=== PATIENT | male | born 1955 | race Caucasian/White ===

== ENCOUNTER 2022-02-01 11:10 | Day surgery (SDC) | payer MEDICARE ==
[2022-02-01] MEDS ORDERED: fentaNYL 100 MCG/2 ML SDV ONE (11:38)
[2022-02-01] MEDS ORDERED: Propofol 200 MG/20 ML SDV ONE (11:39)
[2022-02-01] MEDS ORDERED: Sodium Chloride 0.9% 1,000 ML IV SCH (11:45)
== END 2022-02-01 14:00 ==
LOC: JP.SDS 11:10
PROVIDERS: ATTEND Surgery
DX: Z12.11 Encounter for screening for malignant neoplasm of colon (principal); F17.200 Nicotine dependence, unspecified, uncomplicated; I10 Essential (primary) hypertension; F32.A Depression, unspecified
CPT/HCPCS: G0121; J2704; J3010; J7030